=== PATIENT | female | born 1985 | race Caucasian/White ===

== ENCOUNTER 2020-03-13 13:28 | Emergency (ER) | payer SELFPAY ==
--- NOTE | 2020-03-13 14:09 | EDM.PDOC ---
<Jose Manuel Hinojosa - Last Filed: 03/13/20 15:42> ED HPI GENERAL MEDICAL PROBLEM - General Chief Complaint: Chest Pain Stated Complaint: SPOKE TO NURSE Time Seen by Provider: 03/13/20 13:30 - Related Data Allergies Allergy/AdvReac Type Severity Reaction Status Date / Time No Known Allergies Allergy Verified 01/06/14 21:20 Home Meds: Home Meds Propranolol HCl [Propranolol] 10 mg PO QID 30 Days #60 tablet 03/13/20 [Rx] Course - Re-Assessments/Exams Free Text/Narrative Re-Assessment/Exam: 03/13/20 15:42 Attending physician note I have seen and evaluated the patient with the advanced practice provider. Chief Complaint: Chest pain Brief HPI: Otherwise healthy 34-year-old female works very hard who starts having palpitations sometimes when working in the [employer]. She works hard every day but she can cough and make her palpitations/rapid heartbeat feeling go away. It is intermittent and atypical. No unilateral leg swelling, hemoptysis, or high risk features for pulmonary embolism. ROS: Reviewed and agree Focused Exam: VITAL SIGNS: Reviewed. GENERAL: Awake, conversant, GCS 15, no apparent distress however is anxious about her condition HEAD: No visible signs of trauma EYES: Pupils equal, EOM grossly intact EARS: Hearing grossly intact. MOUTH: No visible lesions NECK: Appears supple CHEST: Breathing comfortably, clear lung sounds CARDIAC: Regular rhythm ABDOMEN: Soft, nontender, benign exam NEUROLOGIC EXAM: Awake and Alert, non-focal SKIN: No visible rashes EXTREMITIES: No deformities noted VASCULAR: Appears well perfused Differential diagnosis includes acute myocardial infarction, pulmonary embolism, aortic dissection, pneumothorax, and esophageal rupture. Cardiac enzymes and EKG will be done for the possibility of myocardial infarction as well as pericarditis and myocarditis. Chest x-ray will be done to screen for pneumonia or pneumothorax. Pulmonary embolism risk factors were queried (no recent trauma or surgery, no personal history of DVT, no family history, no cancer, no calf tenderness or swelling, no hypercoagulability per PMH, no tobacco, no immobility) Labs are normal. EKG is nonischemic. Given her palpitations that she has and her coughing that she uses to Valsalva and get rid of these I recommended she see cardiology and get a Holter monitor. In the meantime I will place her on propranolol. She is to take 10 mg at night for 10 days to 2 weeks to see if this works and does not make her groggy or feel lightheaded. Then she can take it twice a day. Assessment & Plan: 1. Chest pain 2. Palpitations Follow-up list of cardiology placed Departure - Departure Time of Disposition: 15:40 Disposition: Home, Self-Care 01 Clinical Impression: Atypical chest pain, Palpitations - Discharge Information *PRESCRIPTION DRUG MONITORING PROGRAM REVIEWED*: Not Applicable *COPY OF PRESCRIPTION DRUG MONITORING REPORT IN PATIENT JES: Not Applicable Prescriptions: Propranolol HCl [Propranolol] 10 mg PO QID 30 Days #60 tablet Instructions: Nonspecific Chest Pain, Adult, Nonspecific Chest Pain, Adult, [id number], Palpitations, [id number] Referrals: PCP,Unknown [Primary Care Provider] - Forms: ED Department Discharge Additional Instructions: The following information is given to patients seen in the emergency department who are being discharged to home. This information is to outline your options for follow-up care. We provide all patients seen in our emergency department with a follow-up referral. The need for follow-up, as well as the timing and circumstances, are variable depending upon the specifics of your emergency department visit. If you don't have a primary care physician on staff, we will provide you with a referral. We always advise you to contact your personal physician following an emergency department visit to inform them of the circumstance of the visit and for follow-up with them and/or the need for any referrals to a consulting specialist. The emergency department will also refer you to a specialist when appropriate. This referral assures that you have the opportunity for follow-up care with a specialist. All of these measure are taken in an effort to provide you with optimal care, which includes your follow-up. Under all circumstances we always encourage you to contact your private physician who remains a resource for coordinating your care. When calling for follow-up care, please make the office aware that this follow-up is from your recent emergency room visit. If for any reason you are refused follow-up, please contact the [facility] Emergency Department at and asked to speak to the emergency department charge nurse. [facility] [address] [place] [id number] [facility] [address] [place] [id number] 1. You can alternate ibuprofen and tylenol as directed for pain and discomfort. 2. Follow up with a primary care provider as discussed. Return to the ED as needed and as discussed. <Landy Keith - Last Filed: 03/13/20 16:44> ED HPI GENERAL MEDICAL PROBLEM - General Source of Information: Reports: Patient History Limitations: Reports: No Limitations - History of Present Illness INITIAL COMMENTS - FREE TEXT/NARRATIVE: HISTORY AND PHYSICAL: History of present illness: Patient is a 34-year-old female who presents to the ED today with concern of chest discomfort that started over the past 2 hours but states that this is been going on and off a couple times a week for the past 1 year. Patient states that she has not seen anybody for this and decided to come to the ED today after talking with a friend about it who stated she should probably get this evaluated. Patient states that the chest discomfort is nonexertional and that she cannot and associate it with anything that makes it better or worse. Patient states that the chest pain has not changed from what it has been over the past year and presents with the same sensation and not new or different. Patient has not taken anything for the symptoms. Patient denies any family health history, including any heart concerns. Denies any personal health history. Patient denies fever, chills, shortness of breath, or cough. Denies headache, neck stiff ness, change in vision, syncope, or near syncope. Denies nausea, vomiting, abdominal pain, diarrhea, constipation, or dysuria. Has not noted any blood in urine or stool. Patient has been eating and drinking appropriately. Review of systems: As per history of present illness and below otherwise all systems reviewed and negative. Past medical history: As per history of present illness and as reviewed below otherwise noncontributory. Surgical history: As per history of present illness and as reviewed below otherwise noncontributory. Social history: See social history for further information Family history: As per history of present illness and as reviewed below otherwise noncontributory. Physical exam: General: Patient is alert, oriented, and in no acute distress. Patient sitting comfortably on exam table. HEENT: Atraumatic, normocephalic, pupils equal and reactive bilaterally, negative for conjunctival pallor or scleral icterus, mucous membranes moist, TMs normal bilaterally, throat clear, neck supple, nontender, trachea midline. No drooling or trismus noted. No meningeal signs. No hot potato voice noted. Lungs: Clear to auscultation, breath sounds equal bilaterally, chest nontender. Heart: S1S2, regular rate and rhythm without overt murmur Abdomen: Soft, nondistended, nontender. Negative for masses or hepatosplenomegaly. Negative for costovertebral tenderness. Pelvis: Stable nontender. Genitourinary: Deferred. Rectal: Deferred. Skin: Intact, warm, dry. No lesions or rashes noted. Extremities: Atraumatic, negative for cords or calf pain. Neurovascular unremarkable. Neuro: Awake, alert, oriented. Cranial nerves II through XII unremarkable. Cerebellum unremarkable. Motor and sensory unremarkable throughout. Exam nonfocal. Notes: HEART score 0. Low risk Discussed importance for follow-up with primary care provider. Voices understanding and is agreeable to plan of care. Denies any further questions or concerns at this time. Diagnostics: EKG, CBC, CMP, UA, CXR, Trop, Serum hcg Therapeutics: None Prescription: None Impression: Atypical chest pain Plan: 1. You can alternate ibuprofen and tylenol as directed for pain and discomfort. 2. Follow up with a primary care provider as discussed. Return to the ED as needed and as discussed. Definitive disposition and diagnosis as appropriate pending reevaluation and review of above. 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 ED EXAM, GENERAL - Physical Exam Exam: See Below (see dictation) Course - Vital Signs Last Recorded V/S: Last Vital Signs Temp 97.4 F 03/13/20 13:39 Pulse 77 03/13/20 13:39 Resp 20 03/13/20 13:39 BP 116/81 03/13/20 13:39 Pulse Ox 98 03/13/20 13:39 - Orders/Labs/Meds Orders: Active Orders 24 hr Category Date Time Status EKG 12 Lead [EKG Documentation Completion] [RC] STAT Care 03/13/20 13:56 Active EKG Documentation Completion [RC] STAT Care 03/13/20 13:56 Active Labs: Laboratory Tests 03/13/20 03/13/20 03/13/20 Range/Units 14:03 14:05 14:05 WBC 5.39 (4.0-11.0) K/uL RBC 4.61 (4.30-5.90) M/uL Hgb 13.8 (12.0-16.0) g/dL Hct 41.5 (36.0-46.0) % MCV 90.0 (80.0-98.0) fL MCH 29.9 (27.0-32.0) pg MCHC 33.3 (31.0-37.0) g/dL RDW Std Deviation 41.7 (28.0-62.0) fl RDW Coeff of Sheng 13 (11.0-15.0) % Plt Count 268 (150-400) K/uL MPV 9.30 (7.40-12.00) fL Neut % (Auto) 62.9 (48.0-80.0) % Lymph % (Auto) 26.3 (16.0-40.0) % Ellsworth % (Auto) 9.1 (0.0-15.0) % Eos % (Auto) 1.5 (0.0-7.0) % Baso % (Auto) 0.2 (0.0-1.5) % Neut # (Auto) 3.4 (1.4-5.7) K/uL Lymph # (Auto) 1.4 (0.6-2.4) K/uL Ellsworth # (Auto) 0.5 (0.0-0.8) K/uL Eos # (Auto) 0.1 (0.0-0.7) K/uL Baso # (Auto) 0.0 (0.0-0.1) K/uL Nucleated RBC % 0.0 /100WBC Nucleated RBCs # 0 K/uL Sodium 139 (136-145) mmol/L Potassium 4.0 (3.5-5.1) mmol/L Chloride 102 (98-107) mmol/L Carbon Dioxide 28.1 (21.0-32.0) mmol/L BUN 10 (7.0-18.0) mg/dL Creatinine 0.9 (0.6-1.0) mg/dL Est Cr Clr Drug Dosing 84.03 mL/min Estimated GFR (MDRD) > 60.0 ml/min Glucose 105 (74-106) mg/dL Calcium 9.5 (8.5-10.1) mg/dL Total Bilirubin 0.2 (0.2-1.0) mg/dL AST 28 (15-37) IU/L ALT 28 (14-63) IU/L Alkaline Phosphatase 56 (46-116) U/L Troponin I < 0.050 (0.000-0.056) ng/mL Total Protein 7.8 (6.4-8.2) g/dL Albumin 4.3 (3.4-5.0) g/dL Globulin 3.5 (2.6-4.0) g/dL Albumin/Globulin Ratio 1.2 (0.9-1.6) HCG, Qual (NEG) Urine Color YELLOW Urine Appearance CLEAR Urine pH 6.5 (5.0-8.0) Ur Specific [place] <= 1.005 (1.001-1.035) Urine Protein NEGATIVE (NEGATIVE) mg/dL Urine Glucose (UA) NEGATIVE (NEGATIVE) mg/dL Urine Ketones NEGATIVE (NEGATIVE) mg/dL Urine Occult Blood NEGATIVE (NEGATIVE) Urine Nitrite NEGATIVE (NEGATIVE) Urine Bilirubin NEGATIVE (NEGATIVE) Urine Urobilinogen 0.2 (<2.0) EU/dL Ur Leukocyte Esterase NEGATIVE (NEGATIVE) 03/13/20 Range/Units 14:05 WBC (4.0-11.0) K/uL RBC (4.30-5.90) M/uL Hgb (12.0-16.0) g/dL Hct (36.0-46.0) % MCV (80.0-98.0) fL MCH (27.0-32.0) pg MCHC (31.0-37.0) g/dL RDW Std Deviation (28.0-62.0) fl RDW Coeff of Sheng (11.0-15.0) % Plt Count (150-400) K/uL MPV (7.40-12.00) fL Neut % (Auto) (48.0-80.0) % Lymph % (Auto) (16.0-40.0) % Ellsworth % (Auto) (0.0-15.0) % Eos % (Auto) (0.0-7.0) % Baso % (Auto) (0.0-1.5) % Neut # (Auto) (1.4-5.7) K/uL Lymph # (Auto) (0.6-2.4) K/uL Ellsworth # (Auto) (0.0-0.8) K/uL Eos # (Auto) (0.0-0.7) K/uL Baso # (Auto) (0.0-0.1) K/uL Nucleated RBC % /100WBC Nucleated RBCs # K/uL Sodium (136-145) mmol/L Potassium (3.5-5.1) mmol/L Chloride (98-107) mmol/L Carbon Dioxide (21.0-32.0) mmol/L BUN (7.0-18.0) mg/dL Creatinine (0.6-1.0) mg/dL Est Cr Clr Drug Dosing mL/min Estimated GFR (MDRD) ml/min Glucose (74-106) mg/dL Calcium (8.5-10.1) mg/dL Total Bilirubin (0.2-1.0) mg/dL AST (15-37) IU/L ALT (14-63) IU/L Alkaline Phosphatase (46-116) U/L Troponin I (0.000-0.056) ng/mL Total Protein (6.4-8.2) g/dL Albumin (3.4-5.0) g/dL Globulin (2.6-4.0) g/dL Albumin/Globulin Ratio (0.9-1.6) HCG, Qual NEGATIVE (NEG) Urine Color Urine Appearance Urine pH (5.0-8.0) Ur Specific [place] (1.001-1.035) Urine Protein (NEGATIVE) mg/dL Urine Glucose (UA) (NEGATIVE) mg/dL Urine Ketones (NEGATIVE) mg/dL Urine Occult Blood (NEGATIVE) Urine Nitrite (NEGATIVE) Urine Bilirubin (NEGATIVE) Urine Urobilinogen (<2.0) EU/dL Ur Leukocyte Esterase (NEGATIVE) Sepsis Event Note (ED) - Evaluation Sepsis Screening Result: No Definite Risk - Focused Exam Vital Signs: Vital Signs Temp Pulse Resp BP Pulse Ox 03/13/20 13:39 97.4 F 77 20 116/81 98 - My Orders Last 24 Hours: My Active Orders 03/13/20 13:56 EKG 12 Lead [EKG Documentation Completion] [RC] STAT EKG Documentation Completion [RC] STAT - Assessment/Plan Last 24 Hours: My Active Orders 03/13/20 13:56 EKG 12 Lead [EKG Documentation Completion] [RC] STAT EKG Documentation Completion [RC] STAT
[2020-03-13 14:39] LABS: BLOOD UREA NITROGEN,BUN 10 mg/dL (7.0-18.0); CARBON DIOXIDE,CO2 28.1 mmol/L (21.0-32.0); CHLORIDE,CL 102 mmol/L (98-107); GLUCOSE RANDOM 105 mg/dL (74-106); SODIUM,NA 139 mmol/L (136-145)
--- NOTE | 2020-03-13 16:08 | CR ---
INDICATION: Chest pain TECHNIQUE: Chest 1 view COMPARISON: None FINDINGS: Cardiovascular and mediastinum: Heart size and vasculature are normal in caliber and appearance. Lungs and pleural spaces: Possible hyperlucency both upper lobes. No sign of infiltrate or mass. No sign of pleural effusion. No pneumothorax. Bones and soft tissues: No significant findings. IMPRESSION: No acute findings. Possible COPD/emphysema. Dictated by Jorge Luis Carlin MD @ Mar 13 2020 4:06PM Signed by Dr. Jorge Luis Carlin @ Mar 13 2020 4:07PM
== END 2020-03-13 15:44 | disposition home or self-care (01) ==
LOC: MW.ED 13:28
DX: R07.89 Other chest pain (principal); R00.2 Palpitations
CPT/HCPCS: 36415; 71045; 71045-26; 80053; 81003; 84484; 84703; 85025; 93005; 99284; 99285-25

== ENCOUNTER 2020-07-27 16:36 | Emergency (ER) | payer BC ==
--- NOTE | 2020-07-27 17:14 | EDM.PDOC ---
<Jun Tripp - Last Filed: 07/27/20 18:50> ED HPI GENERAL MEDICAL PROBLEM - General Chief Complaint: ENT Problem Stated Complaint: SICK Time Seen by Provider: 07/27/20 16:38 Source of Information: Reports: Patient History Limitations: Reports: No Limitations - History of Present Illness INITIAL COMMENTS - FREE TEXT/NARRATIVE: Is a 35-year-old female who was sent from her dentist office. Patient had a tooth pulled on the right lower jaw. Patient states at rest is having pain. The dentist call beforehand and told her she was coming. It is not clear why the the dentist did not provide her with medication at the point and the tooth or the local anesthetics. Patient denies any difficulty breathing no other complaints. Patient is already getting antibiotics from the dentist. Patient has no other complaints. 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 Constitutional: Reports: No Symptoms HEENT: Reports: Dental Pain Respiratory: Reports: No Symptoms Cardiovascular: Reports: No Symptoms Endocrine: Reports: No Symptoms GI/Abdominal: Reports: No Symptoms : Reports: No Symptoms Musculoskeletal: Reports: No Symptoms Skin: Reports: No Symptoms Neurological: Reports: No Symptoms Psychiatric: Reports: No Symptoms Hematologic/Lymphatic: Reports: No Symptoms Immunologic: Reports: No Symptoms ED EXAM, GENERAL - Physical Exam Exam: See Below Exam Limited By: No Limitations General Appearance: Alert, WD/WN, Mild Distress Throat/Mouth: Other (tenderness along jawline). No: Normal Teeth Neurological: Alert, Oriented Course - Re-Assessments/Exams Free Text/Narrative Re-Assessment/Exam: 07/27/20 18:20 10 this would like patient to get a dose of IV antibiotics. Patient has no fever chills or other systemic symptoms. Will give a dose and IV antibiotics patient still has p.o. antibiotics and p.o. pain meds given to her by her dentist that she can take patient will be discharged with antibiotics. Departure - Departure Time of Disposition: 18:50 Disposition: Home, Self-Care 01 Condition: Good Clinical Impression: Dental abscess - Discharge Information *PRESCRIPTION DRUG MONITORING PROGRAM REVIEWED*: Not Applicable *COPY OF PRESCRIPTION DRUG MONITORING REPORT IN PATIENT JES: Not Applicable Instructions: Dental Abscess Referrals: PCP,None [Primary Care Provider] - Forms: ED Department Discharge Additional Instructions: The following information is given to patients seen in the emergency department who are being discharged to home. This information is to outline your options for follow-up care. We provide all patients seen in our emergency department with a follow-up referral. The need for follow-up, as well as the timing and circumstances, are variable depending upon the specifics of your emergency department visit. If you don't have a primary care physician on staff, we will provide you with a referral. We always advise you to contact your personal physician following an emergency department visit to inform them of the circumstance of the visit and for follow-up with them and/or the need for any referrals to a consulting specialist. The emergency department will also refer you to a specialist when appropriate. This referral assures that you have the opportunity for follow-up care with a specialist. All of these measure are taken in an effort to provide you with optimal care, which includes your follow-up. Under all circumstances we always encourage you to contact your private physician who remains a resource for coordinating your care. When calling for follow-up care, please make the office aware that this follow-up is from your recent emergency room visit. If for any reason you are refused follow-up, please contact the [facility] Emergency Department at and asked to speak to the emergency department charge nurse. Please follow up with your primary care physician. If you do not have a primary care physician, see below: Please follow-up with your dentist if you have any other complaints. If you have any other concerning signs or symptoms please return to the ED Sepsis Event Note (ED) - Evaluation Sepsis Screening Result: No Definite Risk - Assessment/Plan Assessment:: Is a 35-year-old female who presents today pain to her right lower jaw at having a tooth pulled. The dentist: Feel that she is coming in with knee pain control is not clear why he did not provide pain control but we will give patient Percocets and attempt to control in pain there is no concerning findings of his swelling to the gumline or fevers chills. <Donte Comer - Last Filed: 07/27/20 19:12> Course - Vital Signs Text/Narrative:: When antibiotics were administered completely the patient was discharged as planned by my predecessor he was shifted to just before discharge Last Recorded V/S: Last Vital Signs Temp 37.0 C 07/27/20 16:59 Pulse 88 07/27/20 16:59 Resp 17 07/27/20 16:59 BP 138/71 07/27/20 16:59 Pulse Ox 98 07/27/20 16:59 - Orders/Labs/Meds Meds: Medications Discontinued Medications Generic Name Dose Route Start Last Admin Trade Name Jitendraq PRN Reason Stop Dose Admin Ampicillin Sodium/Sulbactam 100 mls @ 200 mls/hr 07/27/20 18:01 07/27/20 18:34 Sodium 3 gm/ Sodium Chloride IV 07/27/20 18:30 Not Given ONETIME ONE Ampicillin Sodium/Sulbactam 100 mls @ 200 mls/hr 07/27/20 18:14 07/27/20 18:30 Sodium 3 gm/ Sodium Chloride IV 07/27/20 18:43 200 mls/hr ONETIME ONE Administration Oxycodone/Acetaminophen 1 tab 07/27/20 17:11 07/27/20 17:15 Percocet 325-5 Mg PO 07/27/20 17:12 1 tab ONETIME ONE Administration Sepsis Event Note (ED) - Focused Exam Vital Signs: Vital Signs Temp Pulse Resp BP Pulse Ox 07/27/20 16:59 37.0 C 88 17 138/71 98
[2020-07-27] MEDS: Acetaminophen/oxyCODONE 325-5 MG Tab PO ONE (17:15)
[2020-07-27] MEDS: Ampicillin/Sulbactam Na 3 GM in Sodium Chloride 0.9% 100 ML IV ONE ×2 (18:30→18:34)
== END 2020-07-27 19:24 | disposition home or self-care (01) ==
LOC: MW.ED 16:36
DX: K04.7 Periapical abscess without sinus (principal)
CPT/HCPCS: 96365; 99284; A9270; J0295; J7050; 99283

== ENCOUNTER 2025-01-19 09:33 | Emergency (ER) | payer BC ==
[2025-01-19] MEDS ORDERED: Aluminum Hydroxide/Magnesium Hydroxide/Simethicone Susp 30 ML Cup PO ONE (10:29)
== END 2025-01-19 11:32 | disposition home or self-care (01) ==
LOC: MW.ED 09:33
DX: F41.9 Anxiety disorder, unspecified (principal); R00.2 Palpitations
CPT/HCPCS: 99282; 99284